=== PATIENT | female | born 1990 | race Caucasian/White ===

== ENCOUNTER → 2020-10-16 07:49 | Outpatient (BNVA) | payer OTHER, SELFPAY | PROVIDERS: Visit Provider Family Medicine | DX: E66.01 Morbid (severe) obesity due to excess calories (principal); Z68.43 Body mass index [BMI] 50.0-59.9, adult; M25.571 Pain in right ankle and joints of right foot; F17.211 Nicotine dependence, cigarettes, in remission | CPT/HCPCS: 80053; 80061; 83036; 84443; 85025 ==

== ENCOUNTER → 2022-10-12 16:11 | Outpatient (BNVA) | payer OTHER, SELFPAY | PROVIDERS: PCP Family Medicine; Visit Provider Nurse Practitioner Women's Health | DX: Z01.419 Encounter for gynecological examination (general) (routine) without abnormal findings (principal); N84.1 Polyp of cervix uteri; Z30.432 Encounter for removal of intrauterine contraceptive device | CPT/HCPCS: 87624; 88305 ==

== ENCOUNTER → 2023-11-03 08:18 | Outpatient (BNVA) | payer OTHER, SELFPAY | PROVIDERS: PCP Family Medicine; Visit Provider Family Medicine | DX: Z13.6 Encounter for screening for cardiovascular disorders (principal) | CPT/HCPCS: 80053; 80061; 83036; 84443; 85025 ==